=== PATIENT | male | born 1960 | race Caucasian/White ===

== ENCOUNTER 2018-08-28 07:09 | Inpatient (IN) | payer MEDICAID ==
[2018-08-28] VITALS (9 sets, daily range): BP systolic 91–145; BP diastolic 69–90
[~2018-08-28] VITALS: Ht 177.8 cm; Wt 104.5 kg
[~2018-08-28 07:09] MED LIST: FOLI1TAB16 PO; METH2.5T PO
[2018-08-28] MEDS ORDERED: normal saline 1000ML IV soln IV ONE (07:25)
[2018-08-28] MEDS ORDERED: USTE90DI SUBCUT (08:17)
[2018-08-28 08:23] LABS: OCCULT BLOOD STOOL POSITIVE (Neg)
[2018-08-28 08:26] LABS: BASOPHILS % (AUTO) 0.3 % (0-1); EOSINOPHILS % (AUTO) 0.8 % (0-6); HEMOGLOBIN 13.9 g/dl (14.0-17.9); LYMPHOCYTES # (AUTO) 1.2 X10'3 (1.1-4.8); LYMPHOCYTES % (AUTO) 20.6 % (21-51); MEAN CORPUSCULAR HEMOGLOBIN 30.4 PG (27.0-31.0); MEAN CORPUSCULAR HGB CONC 34.6 % (33.0-36.5); MEAN CORPUSCULAR VOLUME 87.9 FL (78-98); MEAN PLATELET VOLUME 8.8 FL (7.4-10.4); MONOCYTES # (AUTO) 0.8 X10'3 (0-0.9); MONOCYTES % (AUTO) 12.6 % (2-12); NEUTROPHILS % (AUTO) 65.7 % (42-75); PLATELET COUNT 122 X10'3 (140-440); RED BLOOD COUNT 4.56 X10'6 (4.70-6.10); RED CELL DISTRIBUTION WIDTH 12.7 % (11.5-14.5); WHITE BLOOD COUNT 6.1 X10'3 (4.5-11.0)
[2018-08-28 08:29] LABS: ALANINE AMINOTRANSFERASE 51 U/L (12-78); ALBUMIN 2.5 G/DL (3.4-5.0); ALBUMIN/GLOBULIN RATIO 0.8 (1.1-1.5); ALKALINE PHOSPHATASE 44 IU/L (46-116); ANION GAP 9 (8-16); ASPARTATE AMINO TRANSFERASE 38 U/L (10-37); BILIRUBIN,TOTAL 0.3 MG/DL (0.1-1.0); BLOOD UREA NITROGEN 38 MG/DL (7-18); BUN/CREATININE RATIO 36.9 (5.4-32.0); CALCIUM 7.5 MG/DL (8.5-10.1); CHLORIDE 102 MMOL/L (99-107); CREATININE 1.03 MG/DL (0.60-1.10); GLUCOSE 155 MG/DL (70-104); POTASSIUM 4.2 MMOL/L (3.5-5.1); SODIUM 135 MMOL/L (135-145); TOTAL CARBON DIOXIDE 23.9 MMOL/L (24-32); TOTAL PROTEIN 5.8 G/DL (6.4-8.2); eGFR 74 ML/MIN
[2018-08-28 08:36] LABS: INR 1.1 INR; PARTIAL THROMBOPLASTIN TIME 31 SECONDS (22-32); PROTHROMBIN TIME 10.8 SECONDS (9.0-12.0)
[2018-08-28] MEDS ORDERED: pantoprazole IV 80 MG in normal saline 100ml IV soln 100 ML IV ONE ×4 (08:55)
[2018-08-28] MEDS ORDERED: pantoprazole 40 MG vial IV ONE ×2 (09:00→09:10)
[2018-08-28] MEDS: pantoprazole 40MG/NS 100ML BAG 100 ML IV SCH ×4 (09:30→21:59)
[2018-08-28] MEDS ORDERED: potassium Cl 20 mEq SR tablet PO PRN ×2 (09:45)
[2018-08-28] MEDS ORDERED: ondansetron/PF 4mg/2ml inj IV PRN (09:45)
[2018-08-28] MEDS ORDERED: potassium Cl 40MEQ/NS 500ml 500 ML IV PRN ×2 (09:45)
[2018-08-28] MEDS ORDERED: mag hydrox/Alum hydrox/simeth 30ml oral suspension PO PRN (09:45)
[2018-08-28] MEDS ORDERED: magnesium Cl slow-release 64mg tablet PO PRN (09:45)
[2018-08-28] MEDS ORDERED: magnesium 4gm in 100ml NS 100 ML IV PRN (09:45)
[2018-08-28] MEDS ORDERED: HYDROcodone/acetaminophen 5mg/325mg tablet PO PRN (09:45)
[2018-08-28] MEDS ORDERED: morphine 2 MG/ML inj. syringe IV PRN (09:45)
[2018-08-28] MEDS ORDERED: acetaminophen 325mg tablet PO PRN (09:45)
[2018-08-28] MEDS ORDERED: dextrose 50%-water 50ml dispensing syringe IV PRN (09:45)
[2018-08-28] MEDS: oseltamivir phos 75mg capsule PO SCH ×2 (10:15→21:59)
[2018-08-28] MEDS ORDERED: pantoprazole 40MG/NS 100ML BAG 100 ML IV SCH (11:00)
[2018-08-28] MEDS ORDERED: MIDAZolam 5mg/5ml vial ONE (11:19)
[2018-08-28] MEDS ORDERED: fentaNYL/PF 50MCG/1 ML 2ML syringe ONE (11:19)
[2018-08-28] MEDS ORDERED: LIDOcaine Viscous 15ml cup ONE (11:19)
[2018-08-28] MEDS ORDERED: epiNEPHrine 0.1mg/ml 10ml syringe ONE (13:18)
[2018-08-28] MEDS: normal saline 1000ml 1,000 ML IV SCH ×2 (17:18→17:44)
[2018-08-28 20:44] LABS: CLARITY,URINE CLEAR (Clear); COLOR,URINE YELLOW (Yellow); GLUCOSE, URINE NEGATIVE (Neg); KETONES,URINE NEGATIVE (Neg); LEUKOCYTE ESTERASE ,URINE NEGATIVE (Neg); NITRITES, URINE NEGATIVE (Neg); OCCULT BLOOD,URINE NEGATIVE (Neg); PROTEIN,URINE NEGATIVE (Neg); UA COLLECTION TYPE CLN CATCH MIDSTREAM; UROBILINOGEN,URINE 0.2 E.U/dL (0.2-1.0)
[2018-08-28] MEDS ORDERED: temazepam 15mg capsule PO PRN (21:00)
[2018-08-29] VITALS (7 sets, daily range): BP systolic 101–120; BP diastolic 54–78
[2018-08-29] MEDS: pantoprazole 40MG/NS 100ML BAG 100 ML IV SCH ×5 (01:00→20:03)
[2018-08-29] MEDS: normal saline 1000ml 1,000 ML IV SCH ×2 (01:23→09:36)
[2018-08-29 05:27] LABS: BASOPHILS % (AUTO) 0.2 % (0-1); EOSINOPHILS % (AUTO) 0.4 % (0-6); HEMATOCRIT 28.4 % (42.0-52.0); HEMOGLOBIN 9.8 g/dl (14.0-17.9); LYMPHOCYTES # (AUTO) 1.8 X10'3 (1.1-4.8); MEAN CORPUSCULAR HEMOGLOBIN 30.4 PG (27.0-31.0); MEAN CORPUSCULAR HGB CONC 34.3 % (33.0-36.5); MEAN CORPUSCULAR VOLUME 88.7 FL (78-98); MEAN PLATELET VOLUME 8.8 FL (7.4-10.4); MONOCYTES # (AUTO) 0.5 X10'3 (0-0.9); MONOCYTES % (AUTO) 9.3 % (2-12); NEUTROPHILS # (AUTO) 2.8 X10'3 (1.8-7.7); NEUTROPHILS % (AUTO) 55.1 % (42-75); PLATELET COUNT 102 X10'3 (140-440); RED BLOOD COUNT 3.21 X10'6 (4.70-6.10); RED CELL DISTRIBUTION WIDTH 12.9 % (11.5-14.5); WHITE BLOOD COUNT 5.1 X10'3 (4.5-11.0)
[2018-08-29 05:32] LABS: ALANINE AMINOTRANSFERASE 36 U/L (12-78); ALBUMIN 2.1 G/DL (3.4-5.0); ALBUMIN/GLOBULIN RATIO 0.8 (1.1-1.5); ALKALINE PHOSPHATASE 30 IU/L (46-116); ANION GAP 8 (8-16); ASPARTATE AMINO TRANSFERASE 31 U/L (10-37); BILIRUBIN,TOTAL 0.2 MG/DL (0.1-1.0); BLOOD UREA NITROGEN 17 MG/DL (7-18); BUN/CREATININE RATIO 21.8 (5.4-32.0); CALCIUM 7.2 MG/DL (8.5-10.1); CHLORIDE 108 MMOL/L (99-107); CREATININE 0.78 MG/DL (0.60-1.10); GLUCOSE 112 MG/DL (70-104); MAGNESIUM 1.9 MG/DL (1.5-2.4); POTASSIUM 3.6 MMOL/L (3.5-5.1); SODIUM 138 MMOL/L (135-145); TOTAL CARBON DIOXIDE 21.7 MMOL/L (24-32); TOTAL PROTEIN 4.7 G/DL (6.4-8.2); eGFR > 90 ML/MIN
[2018-08-29] MEDS: K and/or MAG REPLACEMENT MC SCH (08:00)
[2018-08-29] MEDS: oseltamivir phos 75mg capsule PO SCH ×2 (10:04→20:03)
[2018-08-29] MEDS: ipratropium/albuterol 3ml nebule NEB SCH ×2 (14:53→19:54)
[2018-08-30] VITALS: BP 127/67
[2018-08-30] MEDS: ipratropium/albuterol 3ml nebule NEB SCH ×4 (00:01→12:43)
[2018-08-30] MEDS: pantoprazole 40MG/NS 100ML BAG 100 ML IV SCH ×3 (01:07→11:23)
[2018-08-30 06:41] LABS: BASOPHILS % (AUTO) 0.6 % (0-1); HEMATOCRIT 26.9 % (42.0-52.0); LYMPHOCYTES # (AUTO) 1.7 X10'3 (1.1-4.8); MEAN CORPUSCULAR HEMOGLOBIN 29.9 PG (27.0-31.0); MEAN CORPUSCULAR HGB CONC 33.7 % (33.0-36.5); MEAN CORPUSCULAR VOLUME 88.8 FL (78-98); MEAN PLATELET VOLUME 9.2 FL (7.4-10.4); MONOCYTES # (AUTO) 0.3 X10'3 (0-0.9); MONOCYTES % (AUTO) 8.7 % (2-12); NEUTROPHILS # (AUTO) 1.6 X10'3 (1.8-7.7); NEUTROPHILS % (AUTO) 42.7 % (42-75); PLATELET COUNT 110 X10'3 (140-440); RED BLOOD COUNT 3.03 X10'6 (4.70-6.10); RED CELL DISTRIBUTION WIDTH 12.9 % (11.5-14.5); WHITE BLOOD COUNT 3.7 X10'3 (4.5-11.0)
[2018-08-30 07:01] LABS: ALANINE AMINOTRANSFERASE 34 U/L (12-78); ALBUMIN 2.2 G/DL (3.4-5.0); ALBUMIN/GLOBULIN RATIO 0.7 (1.1-1.5); ALKALINE PHOSPHATASE 31 IU/L (46-116); ANION GAP 8 (8-16); ASPARTATE AMINO TRANSFERASE 30 U/L (10-37); BILIRUBIN,TOTAL 0.3 MG/DL (0.1-1.0); BLOOD UREA NITROGEN 8 MG/DL (7-18); BUN/CREATININE RATIO 12.1 (5.4-32.0); CALCIUM 7.6 MG/DL (8.5-10.1); CHLORIDE 109 MMOL/L (99-107); CREATININE 0.66 MG/DL (0.60-1.10); GLUCOSE 98 MG/DL (70-104); POTASSIUM 3.3 MMOL/L (3.5-5.1); SODIUM 142 MMOL/L (135-145); TOTAL CARBON DIOXIDE 24.8 MMOL/L (24-32); TOTAL PROTEIN 5.3 G/DL (6.4-8.2); eGFR > 90 ML/MIN
[2018-08-30 07:21] VITALS: BP 119/79
[2018-08-30 07:24] VITALS: BP 118/59
[2018-08-30 08:00] VITALS: BP 113/70
[2018-08-30] MEDS: K and/or MAG REPLACEMENT MC SCH (08:00)
[2018-08-30] MEDS: oseltamivir phos 75mg capsule PO SCH (09:50)
[2018-08-30 11:00] VITALS: BP 113/70
[2018-08-30 11:27] VITALS: BP_SYST 101; BP_SYST 110; BP_DIAS 61
[2018-08-30 12:42] LABS: HEMATOCRIT 27.6 % (42.0-52.0); HEMOGLOBIN 9.4 g/dl (14.0-17.9); MEAN CORPUSCULAR HGB CONC 33.9 % (33.0-36.5); MEAN CORPUSCULAR VOLUME 88.6 FL (78-98); MEAN PLATELET VOLUME 8.5 FL (7.4-10.4); PLATELET COUNT 127 X10'3 (140-440); RED BLOOD COUNT 3.11 X10'6 (4.70-6.10); WHITE BLOOD COUNT 4.5 X10'3 (4.5-11.0)
[2018-08-30] MEDS ORDERED: NICO-687 TOP (13:24)
[2018-08-30] MEDS ORDERED: PANT-47 PO (13:24)
[2018-08-30] MEDS ORDERED: pantoprazole 40mg Tablet.DR PO ONE (13:25)
[2018-08-30] MEDS ORDERED: morphine 4 MG/ML inj SYRINge IV PRN (15:59)
[2018-08-30] MEDS ORDERED: TAM75C PO (17:56)
== END 2018-08-30 17:11 | disposition home or self-care (01) | DRG 241 ==
LOC: ER 07:10 → ED HOLD 09:44 → SUR 3N 14:21
PROVIDERS: ADMIT Internal Medicine; ATTEND Family Medicine
PROC: 0DB68ZX Excision of Stomach, Via Natural or Artificial Opening Endoscopic, Diagnostic (ICD-10-PCS; principal; 2018-08-28)
PROC: 0W3P8ZZ Control Bleeding in Gastrointestinal Tract, Via Natural or Artificial Opening Endoscopic (ICD-10-PCS; 2018-08-28)
PROC: 3E0G8GC Introduction of Other Therapeutic Substance into Upper GI, Via Natural or Artificial Opening Endoscopic (ICD-10-PCS; 2018-08-28)
DX: K26.4 Chronic or unspecified duodenal ulcer with hemorrhage (principal); D69.6 Thrombocytopenia, unspecified; K25.4 Chronic or unspecified gastric ulcer with hemorrhage; J44.1 Chronic obstructive pulmonary disease with (acute) exacerbation; E86.0 Dehydration; F10.10 Alcohol abuse, uncomplicated; J10.1 Influenza due to other identified influenza virus with other respiratory manifestations; L40.9 Psoriasis, unspecified; F17.200 Nicotine dependence, unspecified, uncomplicated; Z80.0 Family history of malignant neoplasm of digestive organs; Z86.14 Personal history of Methicillin resistant Staphylococcus aureus infection; Z71.6 Tobacco abuse counseling
CPT/HCPCS: 36415; 43239; 71045; 80053; 81003; 82272; 83605; 83735; 84145; 85025; 85027; 85610; 85730; 86885; 86900; 86901; 87040; 87070; 87502; 87503; 93005; 94640; 94760; 96374; 99152; 99153; 99285; A4620; C9113; G0378; J0171; J2250; J3010; J7030